=== PATIENT | female | born 1985 | race Two or more races ===

== ENCOUNTER 2025-03-09 10:50 | Emergency (ER) | payer MEDICAID, OTHER ==
[~2025-03-09] VITALS: Ht 160 cm; Wt 190.2 kg
--- NOTE | 2025-03-09 11:39 | ED.PDOC ---
History of Present Illness HPI Comments This is a 39-year-old 10 weeks female A1 beninese speaking presented to the ED with a chief complaint of nausea, vomiting, dizziness since yesterday. The patient states that her last menstrual period was December 23, 2024, approximately 10 weeks started having nausea, vomiting and dizziness si nce yesterday getting worse that prompted this visit. She also mentioned that she lost her previous to child 1 is at 8 weeks and other 1 is still at 8 month. She denies abdominal pain, blurred vision, chest pain, or any per vaginal discharge. She is doing regular checkup but ultrasound is not done yet because she did not get an appointment till now. She is taking regular vitamin and denies any other medications. Obstetrical ultrasound on 03/09/2025 showed Single intrauterine with no heart rate detected. Estimated gestational age 9 weeks/6 days with estimated date of confinement 10/06/2025. Findings concerning for early loss. 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 Patient seems understand the current situation and possible com plication if any early ventilation is not taken. Discussed the ultrasound report and possible demise with patient PCP Dr. Morales and she mentioned will follow up the patient for further evaluation and management of early loss. Patient's vital was stable. Informed the patient if there is any severe per vaginal bleeding or any severe abdominal pain, fever ,chills need to come to the ER as soon as possible. Patient is discharged with imaging and blood work reports and advised to follow up with PCP as soon as possible. PCP: Dr. Morales Chief Complaint: Nausea/Vomiting Time Seen by MD: 11:11 Allergies: Coded Allergies: Acetaminophen (Verified Allergy, Unknown, 03/09/25) Hydrocodone (Verified Allergy, Unknown, 03/09/25) Morphine (Verified Allergy, Unknown, 03/09/25) Information Source: Patient Mode of Arrival: Ambulatory Severity: Moderate Timing: Hours Duration: Since onset Prehospital treatment: None Past Medical History Past Medical History (Other): None Surgical History: Appendectomy 4 Para 1 AB 1 LMP December 23, 2024 Family History Family History: Reviewed,noncontributory to illness Social History Smoker: Non-Smoker Alcohol: Denies ETOH Use Drugs: Denies Drug Use Lives In: Home Constitutional: denies: chills, diaphoresis, fatigue, fever, malaise, sweats, weakness, others EENTM: denies: blurred vision, double vision, ear bleeding, ear discharge, ear drainage, ear pain, ear ringing, eye pain, eye redness, hearing loss, mouth pain, mouth swelling, nasal discharge, nose bleeding, nose congestion, nose pain, photophobia, tearing, throat pain, throat swelling, voice changes, others Respiratory: denies: cough, hemoptysis, orthopnea, SOB at rest, shortness of breath, SOB with excertion, stridor, wheezing, others Cardiovascular: reports: lightheadedness; denies: chest pain, dizzy spells, diaphoresis, Dyspnea on exertion, edema, irregular heart beat, left arm pain, palpitations, PND, syncope, others Gastrointestinal: reports: nausea, vomiting; denies: abdomen distended, abdomi nal pain, blood streaked bowels, constipated, diarrhea, dysphagia, difficulty swallowing, hematemesis, melena, poor appetite, poor fluid intake, rectal bleeding, rectal pain, others Genitourinary: denies: abnormal vagina bleeding, burning, dyspareunia, dysuria, flank pain, frequency, hematuria, incontinence, pain, , vagina discharge, urgency, others Neurological: reports: dizziness; denies: fainting, headache, left sided numbness, left sided weakness, numbness, paresthesia, pre-existing deficit, right sided numbness, right sided weakness, seizure, speech problems, tingling, tremors, weakness, others Musculoskeletal: denies: back pain, gout, joint pain, joint swelling, muscle pain, muscle stiffness, neck pain, others Integumetry: denies: bruises, change in color, change in hair/nails, dryness, laceration, lesions, lumps, rash, wounds, others Hematologic/Lymphatic: denies: anemia, blood clots, easy bleeding, easy bruising, swollen glands, others Endocrine: denies: excessive hunger, excessive sweating, excessive thirst, excessive urination, flushing, intolerance to cold, intolerance to heat, unexplained weight gain, unexplained weight loss, others Psychiatric: denies: anxiety, bipolar disorder, depression, hopeless, panic disorder, schizophrenia, sleepless, suicidal, others Physical Exam General Appearance: Mild Distress HEENT: Normal ENT Inspection, Pharynx Normal, TMs Normal Neck: Full Range of Motion, Non-Tender, Normal, Normal Inspection Respiratory: Chest Non-Tender, Lungs Clear, No Accessory Muscle Use, No Respiratory Distress, Normal Breath Sounds Cardiovascular: No Edema, No JVD, No Murmur, No Gallop, Normal Peripheral Pulses, Regular Rate/Rhythm Breast Exam: Deferred Gastrointestinal: No Organomegaly, Non Tender, No Pulsatile Mass, Normal Bowel Sounds, Soft Genitalia: Deferred Pelvic: Deferred Rectal: Deferred Extremities: No calf tenderness, Normal capillary refill, Normal inspection, Normal range of motion, Non-tender, No pedal edema Neurologic: NOT DONE Cerebellar Function: NOT DONE Reflexes: NOT DONE Skin: NOT DONE Peripheral Pulses: 3+ carotid (R), 3+ carotid (L), 3+ femoral (R), 3+ femoral (L), 3+ dorsalis pedis (R), 3+ dorsalis pedis (L), 3+ Radial (R), 3+ Radial (L), 3+ Brachial (R), 3+ Brachial (L) Lymphatic: NOT DONE Was a procedure done? Was a procedure done?: No Differential Dx Considerations may include: , hyperemesis gravidarum, dizziness, gastroenteritis, demise. X-Ray, Labs, Meds, VS Vital Signs Date Time Temp Pulse Resp B/P (MAP) Pulse Ox O2 Delivery O2 Flow Rate FiO2 03/09/25 13:24 97.5 61 15 118/51 (73) 100 97.5 03/09/25 11:15 98.7 65 20 128/65 99 98.7 Lab Test 03/09/25 11:46 03/09/25 11:25 Range/Units White Blood Count 10.8 4.4-10.8 10^3/uL Red Blood Count 4.55 4.0-5.20 10^6/uL Hemoglobin 12.9 12.2-16.2 g/dL Hematocrit 37.8 36.0-46.0 % Mean Corpuscular Volume 83.0 80.0-100.0 fL Mean Corpuscular Hemoglobin 28.4 28.0-32.0 pg Mean Corpuscular Hemoglobin Concent 34.3 32.0-36.0 g/dL Red Cell Distribution Width 14.8 H 11.8-14.3 % Platelet Count 280 140-450 10^3/uL Mean Platelet Volume 6.6 L 6.9-10.8 fL Neutrophils (%) (Auto) 37.0-80.0 % Lymphocytes (%) (Auto) 10.0-50.0 % Monocytes (%) (Auto) 0.0-12.0 % Eosinophils (%) (Auto) 0.0-7.0 % Basophils (%) (Auto) 0.0-2.0 % Neutrophils # (Auto) 1.6-8.6 10 ^3/uL Lymphocytes # (Auto) 0.4-5.4 10 ^3/uL Monocytes # (Auto) 0-1.3 10 ^3/uL Differential Total Cells Counted 100.0 100 Neutrophils % (Manual) 61 37.0-80.0 Band Neutrophils % (Manual) 0 Lymphocytes % (Manual) 20 10.0-50.0 Monocytes % (Manual) 2 0-12 Eosinophils % (Manual) 17 H 0-7 Basophils % (Manual) 0 0.0-2.0 Metamyelocytes % (manual) 0 Myelocytes % (Manual) 0 Promyelocytes % (Manual) 0 Blast Cells % (Manual) 0 Reactive Lymphocytes 0 Platelet Estimate Adequate Sodium Level 139 136-145 mmol/L Potassium Level 3.8 3.5-5.1 mmol/L Chloride Level 106 98-107 mmol/L Carbon Dioxide Level 23 20-31 mmol/L Anion Gap 10 5-15 Blood Urea Nitrogen 10 9-23 mg/dL Creatinine 0.55 0.550-1.02 mg/dL Glomerular Filtration Rate Calc 120 >90 mL/min BUN/Creatinine Ratio 18.2 10.0-20.0 Serum Glucose 112 H 74-106 mg/dL Calcium Level 10.0 8.7-10.4 mg/dL Beta HCG, Quantitative 06355.2 H 1.5-4.2 mIU/mL Urine Color Colorless Yellow Urine Clarity Clear Clear Urine pH 7.0 5.0-9.0 Urine Specific [place] 1.005 1.001-1.035 Urine Protein Negative Negative Urine Ketones Negative Negative Urine Blood Negative Negative /uL Urine Nitrite Negative Negative Urine Bilirubin Negative Negative Urine Urobilinogen Normal Negative mg/dL Urine Leukocyte Esterase Trace Negative /uL Urine RBC None seen 0 - 4 /hpf Urine Microscopic WBC 1 0-5 /HPF Urine Squamous Epithelial Cells Few <5 /hpf Urine Bacteria None seen None Seen /hpf Urine Glucose Normal Normal mg/dL Time of 1ST Reevaluation: 14:00 Reevaluation 1ST: Consultation: PCP Patient Education/Counseling: Diagnosis, Treatment Family Education/Counseling: No Family Present SEPSIS Sepsis Screen Physician Orders Ob Ultrasound Comp Less 14wks (03/09/25 11:25) Vital Signs Date Time Temp Pulse Resp B/P (MAP) Pulse Ox O2 Delivery O2 Flow Rate FiO2 03/09/25 13:24 97.5 61 15 118/51 (73) 100 97.5 03/09/25 11:15 98.7 65 20 128/65 99 98.7 Laboratory Tests Test 03/09/25 11:46 White Blood Count 10.8 10^3/uL (4.4-10.8) Departure 1 Departure Time of Disposition: 14:30 Impression: Primary Impression: demise Additional Impression: Hyperemesis gravidarum Disposition: 01 HOME / SELF CARE / HOMELESS Condition: Fair Discharged With: Self Critical Care Note Critical Care Time?: No Stability Stability form required: SUMMER Delgadillo RESIDENT Mar 09, 2025 11:39
[2025-03-09 11:58] LABS: Urine Protein, UAD Negative (Negative)
[2025-03-09 12:16] LABS: Chloride 106 mmol/L (98-107); Potassium 3.8 mmol/L (3.5-5.1); Sodium 139 mmol/L (136-145)
[2025-03-09 12:17] LABS: Anion Gap 10 (5-15); Calcium 10.0 mg/dL (8.7-10.4); Carbon Dioxide 23 mmol/L (20-31); Hematocrit 37.8 % (36.0-46.0); Hemoglobin 12.9 g/dL (12.2-16.2); Mean Corpuscular Hemoglobin 28.4 pg (28.0-32.0); Mean Corpuscular Volume 83.0 fL (80.0-100.0)
[2025-03-09 12:22] LABS: BUN/Creatinine Ratio 18.2 (10.0-20.0); Blood Urea Nitrogen 10 mg/dL (9-23); Glucose 112 mg/dL (74-106)
[2025-03-09 13:00] LABS: Total Cells Counted 100.0 (100)
--- NOTE | 2025-03-09 13:35 | DVH ---
Procedure: US OB ULTRASOUND COMP LESS 14WKS Study Date and Requested Time: 03/09/2025 12:34 PM Study Description: US OB ULTRASOUND COMP LESS 14WKS History: 10 week Comparison: None Technique: Multiple high resolution ramsey-scale images obtained of the uterus, fetus, and other gestat ional components with M-mode scanning for evaluation of heart rate. Findings: Single intrauterine with gestational sac, questionable yolk sac, and fetus visualized. No heart rate is detected. Estimated gestational age 9 weeks/6 days based on mean gestational sac diameter of 4.89 cm and crown-rump length of 2.46 cm Uterus measures 12.7 x 9.2 x 6.6 cm in size. Cervical os appears closed. Bilateral ovaries are not visualized No evidence of free fluid in the cul-de-sac. Impression: Single intrauterine with no heart rate detected. Estimated gestational age 9 weeks/6 days with estimated date of confinement 10/06/2025. Findings concerning for early loss. Critical Result: Early loss Findings discussed with KAREN WESTFALL at 03/09/2025 01:32 PM, and acknowledged receipt and understand ing of the findings. ..
[2025-03-09 14:29] VITALS: BP 112/67; PULSE 60; RESP 15; TEMP 98; O2SAT 100
== END 2025-03-09 14:36 | disposition home or self-care (01) ==
LOC: ER 10:50
DX: O36.4XX0 Maternal care for intrauterine death, not applicable or unspecified (principal); R10.2 Pelvic and perineal pain; O21.0 Mild hyperemesis gravidarum; Z3A.10 10 weeks gestation of pregnancy; Z90.49 Acquired absence of other specified parts of digestive tract; Z88.5 Allergy status to narcotic agent; Z88.8 Allergy status to other drugs, medicaments and biological substances
CPT/HCPCS: 36415; 76801; 80048; 81001; 84702; 85007; 85027

== ENCOUNTER 2025-06-06 22:10 | Emergency (ER) | payer MEDICAID ==
[~2025-06-06] VITALS: Ht 160 cm; Wt 88.1 kg
[2025-06-06 22:13] VITALS: BP 158/80; TEMP 97.9; O2SAT 100
--- NOTE | 2025-06-06 22:38 | ECG ---
[facility] Test Date: 2025-06-06 Test Time: 22:27:26 Pat Name: JOLENE SYED Department: Room: Gender: F Voip Network Engineer: : 1985 Requested By: SEAN SARGENT Order Number: [id number] Reading MD: Eamon Brown Measurements Intervals Willis Rate: 51 P: 38 WA: 115 QRS: 60 QRSD: 89 T: 22 QT: 436 QTc: 402 Interpretive Statements Sinus rhythm Borderline short WA interval Electronically Signed On 06-07-2025 15:18:20 PDT by Eamon Brown Please click the below link to view image of tracing.
[2025-06-06 23:04] LABS: Hemoglobin 12.8 g/dL (12.2-16.2); Mean Corpuscular Hemoglobin 26.2 pg (28.0-32.0); Nucleated Red Blood Cells % 0.0 %
[2025-06-06 23:05] LABS: Hematocrit 39.4 % (36.0-46.0); Mean Corpuscular Volume 80.9 fL (80.0-100.0)
[2025-06-06 23:06] LABS: Chloride 106 mmol/L (98-107); Potassium 3.9 mmol/L (3.5-5.1); Sodium 142 mmol/L (136-145)
[2025-06-06 23:07] LABS: Anion Gap 8 (5-15); Calcium 9.7 mg/dL (8.7-10.4); Carbon Dioxide 28 mmol/L (20-31)
[2025-06-06 23:12] LABS: BUN/Creatinine Ratio 17.5 (10.0-20.0); Blood Urea Nitrogen 11 mg/dL (9-23); Glucose 104 mg/dL (74-106)
--- NOTE | 2025-06-06 23:28 | DVH ---
CHEST RADIOGRAPH Indication: Chest pain Technique: 1 view Comparison: None FINDINGS: Lines and Tubes: None. Lungs/Pleura: No focal consolidation, pleural effusion or pneumothorax. Cardiomediastinum: Unremarkable. Other: No acute osseous abnormality. IMPRESSION: 1. No acute cardiopulmonary abnormality.
[2025-06-06] MEDS: SODIUM CHLORIDE 0.9% 1,000 ML IV ONE (23:37)
[2025-06-06 23:40] VITALS: PULSE 51
--- NOTE | 2025-06-06 23:40 | ED.PDOC ---
History of Present Illness HPI Comments 39 y/o Chadian-speaking F presents with c/c of flu-like symptoms. 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 She comments on also checking her blood sugar and fani uring it at 141 at home, earlier, after she was told by her PCP on being prediabetic. Other notable history of recent miscarriage at the end of April 2025 and being stress at work, lately. Denies any further acute symptoms or pertinent medical history or events. REVIEW OF SYSTEMS: General: No fever, no chills, HEENT: No neck pain, no blurred vision Cardiac: No chest pain. No palpitations. Lungs: No shortness of breath, GI: No abdominal pain, no vomiting Musculoskeletal: No joint pain , no back pain Skin: No rash, no wound Neuro: No headache, no dizziness, no syncope PHYSICAL EXAM: General: Awake, alert and oriented. No acute distress. Skin: Skin in warm, dry and intact without rashes or lesions. HEENT: The head is normocephalic and atraumatic. Conjunctivae are clear without exudates or hemorrhage. Sclera is non-icteric. Neck: Normal range of motion. No JVD. Cardiac: Regular rate and rhythm Respiratory: No signs of respiratory distress. No Stridor. Extremities: Upper and lower extremities are atraumatic in appearance without deformity. Neurological: The patient is awake, alert and oriented to person, place, and time with normal speech. Speech is clear. There is no facial asymmetry. Psychiatric: Appropriate mood and affect. Good judgement and insight. Chief Complaint: Headache Time Seen by MD: 22:30 Reviewed Notes: Nurses Notes, Medications, Allergies Allergies: Coded Allergies: Acetaminophen (Verified Allergy, Unknown, 03/09/25) Hydrocodone (Verified Allergy, Unknown, 03/09/25) Morphine (Verified Allergy, Unknown, 03/09/25) Information Source: Patient Mode of Arrival: Ambulatory Severity: Moderate Timing: Hours Duration: Since onset Prehospital treatment: None Past Medical History Past Medical History (Other): Prediabetic Surgical History: Appendectomy Family History Family History: Reviewed,noncontributory to illness Social History Smoker: Non-Smoker Alcohol: Denies ETOH Use Drugs: Denies Drug Use Lives In: Home Was a procedure done? Was a procedure done?: No EKG EKG : Pulse Rate (adult): 51 [place]: Normal Cardiac Rhythm: NSR Block: None Hypertrophy: None ST: Normal Differential Dx Considerations may include: Viral illness, pharyngitis, otitis media, bacteremia, pneumonia, UTI, meningitis, sepsis, other X-Ray, Labs, Meds, VS Vital Signs Date Time Temp Pulse Resp B/P (MAP) Pulse Ox O2 Delivery O2 Flow Rate FiO2 06/06/25 23:40 51 06/06/25 22:27 51 06/06/25 22:13 97.9 55 14 158/80 100 97.9 Lab Test 06/07/25 01:32 06/07/25 00:42 06/06/25 23:30 06/06/25 22:50 Range/Units Troponin I High Sensitivity < 3 L < 3 L </=34 ng/L Influenza Type A Antigen Negative Negative Influenza Type B Antigen Negative Negative SARS-CoV-2 Antigen (Rapid) Negative NEGATIVE Urine Color Colorless Yellow Urine Clarity Clear Clear Urine pH 6.0 5.0-9.0 Urine Specific [place] 1.012 1.001-1.035 Urine Protein Negative Negative Urine Ketones Negative Negative Urine Blood 2+ H Negative /uL Urine Nitrite Negative Negative Urine Bilirubin Negative Negative Urine Urobilinogen Normal Negative mg/dL Urine Leukocyte Esterase Trace Negative /uL Urine RBC 49 0 - 4 /hpf Urine Microscopic WBC 2 0-5 /HPF Urine Squamous Epithelial Cells Few <5 /hpf Urine Bacteria None seen None Seen /hpf Urine Glucose Normal Normal mg/dL Test 06/06/25 22:35 Range/Units White Blood Count 12.9 H 4.4-10.8 10^3/uL Red Blood Count 4.87 4.0-5.20 10^6/uL Hemoglobin 12.8 12.2-16.2 g/dL Hematocrit 39.4 36.0-46.0 % Mean Corpuscular Volume 80.9 80.0-100.0 fL Mean Corpuscular Hemoglobin 26.2 L 28.0-32.0 pg Mean Corpuscular Hemoglobin Concent 32.4 32.0-36.0 g/dL Red Cell Distribution Width 14.8 H 11.8-14.3 % Platelet Count 325 140-450 10^3/uL Mean Platelet Volume 7.2 6.9-10.8 fL Neutrophils (%) (Auto) 54.1 37.0-80.0 % Lymphocytes (%) (Auto) 23.8 10.0-50.0 % Monocytes (%) (Auto) 6.3 0.0-12.0 % Eosinophils (%) (Auto) 15.0 H 0.0-7.0 % Basophils (%) (Auto) 0.8 0.0-2.0 % Neutrophils # (Auto) 7.0 1.6-8.6 10 ^3/uL Lymphocytes # (Auto) 3.1 0.4-5.4 10 ^3/uL Monocytes # (Auto) 0.8 0-1.3 10 ^3/uL Eosinophils # (Auto) 1.9 H 0-0.8 10 ^3/uL Basophils # (Auto) 0.1 0-0.2 10 ^3/uL Nucleated Red Blood Cells 0.0 % Sodium Level 142 136-145 mmol/L Potassium Level 3.9 3.5-5.1 mmol/L Chloride Level 106 98-107 mmol/L Carbon Dioxide Level 28 20-31 mmol/L Anion Gap 8 5-15 Blood Urea Nitrogen 11 9-23 mg/dL Creatinine 0.63 0.550-1.02 mg/dL Glomerular Filtration Rate Calc 116 >90 mL/min BUN/Creatinine Ratio 17.5 10.0-20.0 Serum Glucose 104 74-106 mg/dL Calcium Level 9.7 8.7-10.4 mg/dL Troponin I High Sensitivity < 3 L </=34 ng/L Current Medications Medications (Trade) Dose Ordered Sig/Peggy Route Start Time Stop Time Status Last Admin Sodium Chloride 1,000 ml @ 1,000 mls/hr Q1H ONCE IV 06/06/25 23:00 06/06/25 23:59 DC 06/06/25 23:37 Ketorolac Tromethamine (Toradol Injection) 30 mg ONCE ONCE IV 06/06/25 23:00 06/06/25 23:01 DC 06/06/25 23:59 Diphenhydramine HCl (Benadryl Injection) 25 mg ONCE ONCE IV 06/06/25 23:00 06/06/25 23:01 DC 06/06/25 23:58 Metoclopramide HCl (Reglan Injection) 10 mg ONCE ONCE IV 06/06/25 23:00 06/06/25 23:01 DC 06/06/25 23:58 [place] [id number] Ph: [phone] DIAGNOSTIC IMAGING Diagnostic Imaging Report : [id number] Signed PATIENT: JOLENE ELIAS ACCT: [id number] UNIT: [id number] : 1985 LOC: ER ROOM / BED: / AGE / SEX: 39 / F ADM STATUS: REG ER SERVICE 55 ORDERING PHYSICIAN: SEAN SARGENT MD PROCEDURE(s): CXR1 - CHEST XRAY 1 VIEW REASON: Chest pain ORDER NUMBER(s): [id number], ACCESSION NUMBER(s): [id number] CHEST RADIOGRAPH Indication: Chest pain Technique: 1 view Comparison: None FINDINGS: Lines and Tubes: None. Lungs/Pleura: No focal consolidation, pleural effusion or pneumothorax. Cardiomediastinum: Unremarkable. Other: No acute osseous abnormality. IMPRESSION: 1. No acute cardiopulmonary abnormality. ATED BY: MICHAEL MENDOZA MD DICTATED DATE/TIME: 06/06/252324 SIGNED BY: MICHAEL MENDOZA MD SIGNED DATE/TIME: 06/06/252324 CC: Time of 1ST Reevaluation: 23:00 Reevaluation 1ST: Unchanged Patient Education/Counseling: Treatment, Need For Follow Up Family Education/Counseling: No Family Present SEPSIS Sepsis Screen Date sepsis recognized/suspect: Jun 06, 2025 Time Sepsis recognized/suspect: 2217 Recent Procedure: No Respiratory Rate >20: No Heart Rate >90: No Temp<36 C (96.8 F) or >38.3 C: No SBP <90 or MAP <65 mmHG: No New Acute Mental Status Change: No Is the patient on CPAP, BIPAP,: No Physician Orders Chest Xray 1 View (06/06/25 22:56) Vital Signs Date Time Temp Pulse Resp B/P (MAP) Pulse Ox O2 Delivery O2 Flow Rate FiO2 06/06/25 23:40 51 06/06/25 22:27 51 06/06/25 22:13 97.9 55 14 158/80 100 97.9 Laboratory Tests Test 06/06/25 22:35 White Blood Count 12.9 10^3/uL (4.4-10.8) H Medications Medications Dose Ordered Sig/Peggy Route Start Time Stop Time Status Last Admin Dose Admin Diphenhydramine HCl 25 mg ONCE ONCE IV 06/06/25 23:00 06/06/25 23:01 DC 06/06/25 23:58 Ketorolac Tromethamine 30 mg ONCE ONCE IV 06/06/25 23:00 06/06/25 23:01 DC 06/06/25 23:59 Metoclopramide HCl 10 mg ONCE ONCE IV 06/06/25 23:00 06/06/25 23:01 DC 06/06/25 23:58 Sodium Chloride 1,000 ml @ 1,000 mls/hr Q1H ONCE IV 06/06/25 23:00 06/06/25 23:59 DC 06/06/25 23:37 Departure 1 Departure Time of Disposition: 03:39 Impression: Primary Impression: Headache Disposition: LEFT AWOL/ELOPED Condition: Stable Discharged With: Self Comments MDM: 39-year-old female with headache, low back pain. Discussed results with the patient. She stated she was feeling improved and wanted to go home. Patient eloped from the emergency department prior to receiving discharge instructions. Extensive evaluation was performed in attempt to identify or rule out: (See differential diagnosis section) The following tests were ordered, and results were reviewed by me and discussed with patient: (See diagnostic results section) I reviewed and agreed with the following test results read by other providers: CXR I reviewed the following notes from the pt's past medical encounters: March 09, 2025 encounter for demise Decision regarding hospitalization or escalation of hospital level of care: Risks and benefits of admission for further treatment of patient's condition was considered however due to patient's stable condition patient will be discharged to follow up closely or return to care for worsening of condition or inability to follow up. Critical Care Note Critical Care Time?: No Stability Stability form required: No Heart Score Heart Score: Heart Score Response (Comments) Value History N/A 0 EKG N/A 0 Age N/A 0 Risk Factors N/A 0 Troponin N/A 0 Total 0 I personally scribed for SEAN SARGENT MD ([email or web address]) on 06/06/25 at 23:40. Electronically submitted by Magan Orozco ([email or web address]). SEAN SARGENT MD Jun 06, 2025 23:40
[2025-06-06 23:42] LABS: Urine Protein, UAD Negative (Negative)
[2025-06-06] MEDS: METOCLOPRAMIDE HCL 5MG/ml INJ 2ml VIAL IV ONE (23:58)
[2025-06-06] MEDS: diphenhydrAMINE HCL 50 MG/1 ML VL IV ONE (23:58)
[2025-06-06] MEDS: KETOROLAC TROMETH 30 MG/ML 1ML VIAL IV ONE (23:59)
[2025-06-07 02:00] VITALS: RESP 16
[2025-06-07 02:06] LABS: COVID19 ANTIGEN SOFIA FIA NEGATIVE (NEGATIVE)
== END 2025-06-07 03:52 | disposition home or self-care (01) ==
LOC: ER 22:10
DX: R51.9 Headache, unspecified (principal); R07.9 Chest pain, unspecified; M54.50 Low back pain, unspecified; R11.0 Nausea; R00.2 Palpitations; R73.03 Prediabetes; Z20.822 Contact with and (suspected) exposure to COVID-19; Z87.59 Personal history of other complications of pregnancy, childbirth and the puerperium; Z90.49 Acquired absence of other specified parts of digestive tract; Z88.5 Allergy status to narcotic agent; Z88.8 Allergy status to other drugs, medicaments and biological substances
CPT/HCPCS: 36415; 71045; 80048; 81001; 84484; 85025; 87426; 87804; 93005; 96361; 96374; 96375; 99285; J1200; J1885; J2765; J7030